=== PATIENT | male | born 1990 | race Caucasian/White ===

== ENCOUNTER 2017-10-22 00:20 | Emergency (ER) | payer OTHER ==
[2017-10-22] MEDS ORDERED: LIDOCAINE 1% SDV INJ 30 ML VIAL SC (01:15)
[2017-10-22] MEDS ORDERED: TETANUS/DIPHTHERIA TOX ADSORB ADULT 0.5ML SYR/VIAL (90714) IM (01:15)
[2017-10-22] MEDS ORDERED: LIDOCAINE 1% MDV 20ML VIAL SC (01:24)
[2017-10-22] MEDS ORDERED: NORCO 5/325MG TABLET (BULK FOR ED) PO (02:45)
== END 2017-10-22 03:25 | disposition home or self-care (01) ==
LOC: M ED 00:20
DX: S61.411A Laceration without foreign body of right hand, initial encounter (principal); W25.XXXA Contact with sharp glass, initial encounter; Y92.410 Unspecified street and highway as the place of occurrence of the external cause
CPT/HCPCS: J0690